=== PATIENT | male | born 1950 | race Caucasian/White ===

== ENCOUNTER → 2017-01-01 | Outpatient (CLI) | payer MEDICARE, OTHER ==
[2016-02-04 11:49] VITALS: BP 121/76
[~2017-01-01] MED LIST: ASPI81TA9 PO; ATEN50TA PO; ATOR40TA59 PO; BACL10TA PO; BUPIVACAINE 0.5% 50 ML VIAL. IJ ONE; GABA-587 PO; IOHEXOL 300 MG/ML 10ML VIAL. INT ART ONE; LEVO25TA4 PO; LIDOCAINE 1% Multi-Dose 20 ML VIAL. ID ONE; NAPR500T3 PO; TICA90TA PO; TRAM50TA PO; atenolol; hydromorphone; meloxicam; methylPREDNISolone ACETATE 80 MG/ML VIAL. IM ONE; tramadol
--- NOTE | 2017-01-01 13:55 | KCIC ---
PROCEDURE Therapeutic left hip injection using fluoroscopic guidance. HISTORY Hip pain. TECHNIQUE The procedure was explained to the patient as were potential risks, including infection, bleeding or allergic reaction. All questions were answered. Informed written and verbal consent was obtained. The hip was prepped and draped in the usual sterile manner. Following administration of local anesthetic, a 22-gauge spinal needle was advanced into the hip joint without difficulty, with care taken to avoid the vascular structures. Stylet was removed and following negative aspiration, a mixture of 4 cc Omnipaque-300, 2 cc (80 mg) Depo-Medrol, 4 cc 0.5% Marcaine and 4 cc 1% lidocaine were injected without difficulty. Fluoroscopy demonstrates uniform and satisfactory distribution of the injection through the hip. The needle was removed. There was good hemostasis at the injection site. The patient left in stable condition without immediate complication. The patient was given postprocedural instructions, instructed to contact us or the emergency room if there are any complications. A single spot image was obtained. FLUOROSCOPY TIME: 46 seconds Electronically signed by: Joaquin Carolina MD (Jan 01, 2017 13:54:39)
== END | disposition home or self-care (01) ==
LOC: KCIC 12:27
PROVIDERS: ATTEND Orthopaedic Surgery Sports Medicine
DX: M25.552 Pain in left hip (principal); G89.29 Other chronic pain
CPT/HCPCS: 20610; 77002; J1040; J3490; Q9967

== ENCOUNTER 2017-01-15 08:39 | Observation (INO) | payer MEDICARE, OTHER ==
[~2017-01-15] VITALS: Ht 182.9 cm; Wt 83.9 kg
[2017-01-15] VITALS (11 sets, daily range): BP systolic 99–167; BP diastolic 44–89
[~2017-01-15 08:39] MED LIST changes: -ASPI81TA9 PO; -ATEN50TA PO; -ATOR40TA59 PO; -BACL10TA PO; -BUPIVACAINE 0.5% 50 ML VIAL. IJ ONE; -GABA-587 PO; +HEPARIN for ARTERIAL LINE 1,500 ML ONE; +IODIXANOL 320 MG/ML 100 ML VIAL. ONE; -IOHEXOL 300 MG/ML 10ML VIAL. INT ART ONE; -LEVO25TA4 PO; -LIDOCAINE 1% Multi-Dose 20 ML VIAL. ID ONE; +LIDOCAINE 2% 20 ML VIAL. ONE; -NAPR500T3 PO; -TICA90TA PO; -TRAM50TA PO; -methylPREDNISolone ACETATE 80 MG/ML VIAL. IM ONE
[2017-01-15] MEDS: IV NORMAL SALINE 1000ML BAG 1,000 ML IV SCH (08:47)
[2017-01-15] MEDS ORDERED: NAPR500T3 PO (08:58)
[2017-01-15] MEDS ORDERED: ATEN50TA PO (08:58)
[2017-01-15] MEDS ORDERED: LEVO25TA4 PO (08:58)
[2017-01-15] MEDS ORDERED: BACL10TA PO (08:58)
[2017-01-15] MEDS ORDERED: TRAM50TA PO (08:58)
[2017-01-15] MEDS ORDERED: GABA-587 PO (08:58)
[2017-01-15 09:30] LABS: CREATININE 1.2 mg/dL (0.7-1.3); GFR 60.6; HEMATOCRIT 47.6 % (39.0-53.0); HEMOGLOBIN 16.4 g/dL (13.0-17.5); POTASSIUM 4.7 mmol/L (3.5-5.1); RED BLOOD COUNT 4.76 x10^6/uL (4.30-5.70); RED CELL DISTRIBUTION WIDTH 14.7 % (11.5-14.5)
[2017-01-15 09:35] LABS: INR 1.1 (0.8-1.1); PROTHROMBIN TIME PATIENT 13.5 SEC (11.7-14.0)
[2017-01-15] MEDS ORDERED: MIDAZOLAM HCL/PF 5 MG/5 ML VIAL ONE (10:54)
[2017-01-15] MEDS ORDERED: FENTANYL PF 250 MCG/5 ML VIAL. ONE (10:54)
[2017-01-15] MEDS ORDERED: FENTANYL PF 250 MCG/5 ML VIAL. IV ONE (11:15)
[2017-01-15] MEDS ORDERED: MIDAZOLAM HCL/PF 5 MG/5 ML VIAL IV ONE (11:15)
[2017-01-15] MEDS ORDERED: LIDOCAINE 2% 20 ML VIAL. IJ ONE (11:15)
[2017-01-15] MEDS ORDERED: IODIXANOL 320 MG/ML 100 ML VIAL. IART ONE (11:15)
[2017-01-15] MEDS ORDERED: HEPARIN for IV BOLUS 10,000 UNIT/10 ML VIAL. ONE (11:30)
[2017-01-15] MEDS ORDERED: TICAGRELOR 90 MG TABLET. PO ONE (12:15)
[2017-01-15] MEDS ORDERED: HEPARIN for IV BOLUS 10,000 UNIT/10 ML VIAL. IV ONE (12:30)
--- NOTE | 2017-01-15 13:38 | CARD ---
APPROVED REPORT Patient StatusOUT-PATIENT Cephalometric Technician: Yulissalizbeth Pedroza, RT 9.3 mins Fluoro 107 mL visipaque 428.84mGy [id number] HISTORY The patient is a 66 year-old male with a history of : hypertension, dyslipidemia. INDICATION FOR PROCEDURE The indication(s) include : Bilateral claudication. PROCEDURE NARRATIVE Patient is a pleasant 66-year-old gentleman who was seen in the office for lower extremity claudicati on bilaterally. He had hair loss and pain with ambulation and standing. After discussion of the ris ks and benefits a peripheral antigram was scheduled as an office YOVANY testing revealed bilateral disea se. After appropriate informed consent the patient was brought to the catheterization laboratory and the bilateral groins were prepped and draped in the usual sterile fashion. Under lidocaine 2% anest hesia a 5 Swedish sheath was placed in the right common femoral artery using a 18-gauge needle and J-t ipped guidewire via the modified Seldinger technique. Next, a Omni Flush 5 Swedish catheter was advan meche to the mid aorta and digital subtraction angiography with runoff was performed. Angiography reve aled critical left common femoral artery and ostial/proximal superficial femoral artery disease. Findings: Aorta: No significant disease. RCIA: Mild eccentric calcification without significant disease. RIIA: No signficant disease. REIA: No significant disease. RCFA: No significant disease. RSFA: No significant disease. RPOP: No significant disease. There is three vessel run-off below the knee with rapid tapering of the distal small vessels. RCIA: Mild eccentric calcification without significant disease. RIIA: No signficant disease. REIA: No significant disease. RCFA: No significant disease. RSFA: No significant disease. RPOP: No significant disease. There is three vessel run-off below the knee with rapid tapering of the distal small vessels. RCIA: Mild eccentric calcification without significant disease. RIIA: No signficant disease. REIA: No significant disease. RCFA: No significant disease. RSFA: No significant disease. RPOP: No significant disease. There is three vessel run-off below the knee with rapid tapering of the distal small vessels. LCIA: No significant disease. LIIA: No significant disease. NIMA: No significant disease. LCFA: 80% stenosis in the mid vessel. LSFA: Proxima/ostial 70% stenosis. LPOP: No significant disease, P2 segment not well visualized due to hardware. There is three vessel run-off below the knee with rapid tapering of the distal small vessels, there i s robust PT flow noted. Based upon the angiographic findings and presentation of claudication and intervention was performed on the left common femoral artery and superficial femoral arteries. The 5 Swedish sheath was then exc hanged for a 6 Swedish Gopal sheath. Next, a 0.035'' Versacor wire was used to traverse the lesions. N ext, a 5.0/20 balloon was used to angioplasty the SFA and RESTAURANT HOURLY TEAM MEMBER at 14 galilea for 2 minutes. Next, the SFA was angioplastied with a 6/40 Paclitaxel coated MELVIN and a 7/40 balloon was used in the RESTAURANT HOURLY TEAM MEMBER. Post-PVI there was residual less than 20% stenosis in the SFA and RESTAURANT HOURLY TEAM MEMBER with non-flow limiting dissection noted in the RESTAURANT HOURLY TEAM MEMBER. Therefore, given successful angioplasty result, further intervention was deferred. The pa tient received Heparin for anticoagulation with an ACT of 250 and was given Ticagrelor 180mg at case completion. The right groin sheath was removed and a Perclose device was used to achieve hemostasis. Conclusion Bilateral lower extremity claudication with small vessel disease distally. Successful PVI with angioplasty of the RESTAURANT HOURLY TEAM MEMBER and SFA. Recommendations Aggressive Medical Therapy ASA 81mg daily indefinitely Ticagrelor 90mg bid x 30 days.
[2017-01-15] MEDS ORDERED: hydrALAZINE 20 MG/ML VIAL. IVP ONE (14:00)
[2017-01-15] MEDS ORDERED: HYDRALAZINE 25 MG TABLET PO PRN (18:15)
[2017-01-15] MEDS ORDERED: ATENOLOL 50 MG TABLET PO SCH (18:30)
[2017-01-15] MEDS: ATORVASTATIN CALCIUM 40 MG TABLET. PO SCH ×2 (21:00→23:16)
[2017-01-15] MEDS ORDERED: TRAMADOL 50 MG TABLET. PO PRN (22:00)
[2017-01-15] MEDS: LEVOTHYROXINE 25 MCG TABLET. PO SCH (23:16)
[2017-01-15] MEDS: TICAGRELOR 90 MG TABLET. PO SCH (23:16)
[2017-01-15] MEDS: GABAPENTIN 400 MG CAPSULE. PO SCH (23:16)
[2017-01-15] MEDS: NAPROXEN 500 MG TABLET PO SCH (23:16)
[2017-01-15] MEDS: BACLOFEN 10 MG TABLET PO SCH (23:16)
[2017-01-16] MEDS: IV NORMAL SALINE 1000ML BAG 1,000 ML IV SCH (01:27)
[2017-01-16 03:00] VITALS: BP 133/77
[2017-01-16 05:23] LABS: CHOLESTEROL/HDL RATIO 3.3
[2017-01-16] MEDS: LEVOTHYROXINE 25 MCG TABLET. PO SCH (06:18)
[2017-01-16 07:00] VITALS: BP 140/79
[2017-01-16] MEDS ORDERED: ASPIRIN ENTERIC COATED 81 MG TABLET.DR. PO SCH (08:00)
[2017-01-16] MEDS ORDERED: ATENOLOL 50 MG TABLET PO SCH (09:00)
[2017-01-16] MEDS: TICAGRELOR 90 MG TABLET. PO SCH (09:44)
[2017-01-16] MEDS: BACLOFEN 10 MG TABLET PO SCH (09:45)
[2017-01-16 09:46] VITALS: BP 140/79
[2017-01-16] MEDS: GABAPENTIN 400 MG CAPSULE. PO SCH (09:46)
[2017-01-16] MEDS: NAPROXEN 500 MG TABLET PO SCH (09:46)
[2017-01-16] MEDS ORDERED: ATOR40TA59 PO (10:09)
[2017-01-16] MEDS ORDERED: TICA90TA PO (10:09)
[2017-01-16] MEDS ORDERED: ASPI81TA9 PO (10:09)
--- NOTE | 2017-01-16 10:17 | PDOC3 ---
Discharge Summary Visit Information Date of Admission: Jan 15, 2017 Date of Discharge: Jan 16, 2017 Admitting Diagnosis Comment: 1. PAD with claudication 2. Hypertension 3. COPD 4. tobacco abuse 5. chronic pain 6. hypothyroidism Final Diagnosis Problems Medical Problems: (1) PAD (peripheral artery disease) Status: Acute 2. Hypertension 3. COPD 4. tobacco abuse 5. chronic pain 6. hypothyroidism Brief Hospital Course Allergies Allergies Coded Allergies Type Severity Reaction Last Updated Verified Penicillins Allergy Severe Swelling 02/04/16 Yes Vital Signs Vital Signs Date Time Temp Pulse Resp B/P Pulse Ox O2 Delivery O2 Flow Rate FiO2 01/16/17 10:06 18 Room Air 01/16/17 09:46 53 140/79 01/16/17 07:00 97.5 97 97.5 Lab Results Laboratory Tests Test 01/15/17 09:10 01/15/17 10:41 01/16/17 04:00 White Blood Count 8.0x10^3/uL (4.0-11.0) Red Blood Count 4.76x10^6/uL (4.30-5.70) Hemoglobin 16.4g/dL (13.0-17.5) Hematocrit 47.6% (39.0-53.0) Mean Corpuscular Volume 100fL (79-100) Mean Corpuscular Hemoglobin 35pg (25-35) Mean Corpuscular Hemoglobin Concent 35g/dL (31-37) Red Cell Distribution Width 14.7% (11.5-14.5) Platelet Count 163x10^3/uL (140-400) Prothrombin Time 13.5SEC (11.7-14.0) Prothromb Time International Ratio 1.1 (0.8-1.1) Activated Partial Thromboplast Time 29SEC (24-38) Sodium Level 143mmol/L (136-145) Potassium Level 4.7mmol/L (3.5-5.1) Chloride Level 106mmol/L (98-107) Carbon Dioxide Level 25mmol/L (21-32) Anion Gap 12 (6-14) Blood Urea Nitrogen 20mg/dL (8-26) Creatinine 1.2mg/dL (0.7-1.3) Estimated GFR (Cockcroft-Gault) 60.6 Glucose Level 124mg/dL (70-99) Calcium Level 9.0mg/dL (8.5-10.1) Activated Clotting Time 242sec (92-181) Triglycerides Level 106mg/dL (0-150) Cholesterol Level 145mg/dL (0-200) LDL Cholesterol, Calculated 80mg/dL (0-100) VLDL Cholesterol, Calculated 21mg/dL (0-40) HDL Cholesterol 44mg/dL (40-60) Cholesterol/HDL Ratio 3.3 Laboratory Tests Test 01/15/17 10:41 01/16/17 04:00 Activated Clotting Time 242sec (92-181) Triglycerides Level 106mg/dL (0-150) Cholesterol Level 145mg/dL (0-200) LDL Cholesterol, Calculated 80mg/dL (0-100) VLDL Cholesterol, Calculated 21mg/dL (0-40) HDL Cholesterol 44mg/dL (40-60) Cholesterol/HDL Ratio 3.3 Brief Hospital Course Mr. Jorge is a 66 old male with LE claudication, hair loss and a non-healing hallux wound. Quantaflo studies were abnormal. Further evaluation by angiography was advised and patient was agreeable to proceed. Underwent femoral angiography on 01/15/2017. For full details see report. Underwent left PVI with angioplasty of the LOSS PREVENTION CONSULTANT and SFA. Peripheral circulation monitored overnight. 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 Discharge on DAPT with ASA and Brilinta X 30 days; then ASA and clopidogrel for the following 2 months. LDLs = 80; started on statin therapy. Discharge Information Condition at Discharge: Stable Follow Up: Weeks (4 weeks with cardiology; one week with PCP) Disposition/Orders: D/C to Home Scheduled Aspirin (Aspirin Ec) 81 MG PO DAILYWBKFT Atenolol (Atenolol) 50 MG PO DAILY (Reported) Atorvastatin Calcium (Atorvastatin Calcium) 40 MG PO QHS Baclofen (Baclofen) 10 MG PO BID (Reported) Gabapentin (Gabapentin) 400 MG PO TID (Reported) Levothyroxine Sodium (Levothyroxine Sodium) 25 MCG PO DAILYAC (Reported) Ticagrelor (Brilinta) 90 MG PO BID Scheduled PRN Tramadol Hcl (Tramadol Hcl) 50 MG PO Q6H PRN PRN PAIN (Reported) Discontinued Medications Naproxen (Naproxen) 500 MG PO (Reported) SHELDON GONZALEZ APRN Jan 16, 2017 10:17
== END 2017-01-16 12:02 | disposition home or self-care (01) ==
LOC: CCL 08:39 → 2 NORTH 11:26
PROVIDERS: ADMIT Internal Medicine Cardiovascular Disease; ATTEND Internal Medicine Cardiovascular Disease
DX: I73.9 Peripheral vascular disease, unspecified (principal); I10 Essential (primary) hypertension; J44.9 Chronic obstructive pulmonary disease, unspecified; G89.29 Other chronic pain; E03.9 Hypothyroidism, unspecified; Z72.0 Tobacco use
CPT/HCPCS: 36415; 37224; 75630; 80048; 80061; 85027; 85347; 85610; 85730; 96374; 96375; C1769; C1771; C1885; C1892; C2623; G0269; G0378; G0379; J1644; J2250; J3010; Q9967; 37220

== ENCOUNTER → 2018-02-22 | Outpatient (CLI) | payer MEDICARE, OTHER | END | disposition home or self-care (01) | LOC: KCIC MRI 10:31 | DX: M51.36 Other intervertebral disc degeneration, lumbar region (principal); M47.816 Spondylosis without myelopathy or radiculopathy, lumbar region; M25.78 Osteophyte, vertebrae | CPT/HCPCS: 72148 ==

== ENCOUNTER → 2018-03-11 | Outpatient (CLI) | payer OTHER, MEDICARE ==
[~2018-03-11] MED LIST changes: -HEPARIN for ARTERIAL LINE 1,500 ML ONE; -IODIXANOL 320 MG/ML 100 ML VIAL. ONE; +IOHEXOL 180 MG/ML 10 ML VIAL.; -LIDOCAINE 2% 20 ML VIAL. ONE; -atenolol; -hydromorphone; -meloxicam; +methylPREDNISolone ACETATE 40 MG/ML VIAL.; +methylPREDNISolone ACETATE 80 MG/ML VIAL.; -tramadol
== END ==
LOC: PNCL 13:16
DX: M51.16 Intervertebral disc disorders with radiculopathy, lumbar region (principal); J44.9 Chronic obstructive pulmonary disease, unspecified; M19.90 Unspecified osteoarthritis, unspecified site; E03.9 Hypothyroidism, unspecified; I73.9 Peripheral vascular disease, unspecified; F17.210 Nicotine dependence, cigarettes, uncomplicated; Z79.82 Long term (current) use of aspirin; Z72.89 Other problems related to lifestyle; Z88.0 Allergy status to penicillin; Z98.890 Other specified postprocedural states; Z96.652 Presence of left artificial knee joint
CPT/HCPCS: 62323; J1030; J1040; Q9965

== ENCOUNTER → 2018-04-04 | Outpatient (CLI) | payer OTHER ==
[~2018-04-04] MED LIST changes: +LIDOCAINE 1% PF 2 ML VIAL.
== END ==
LOC: PNCL 13:25
DX: M51.16 Intervertebral disc disorders with radiculopathy, lumbar region (principal); I10 Essential (primary) hypertension; J44.9 Chronic obstructive pulmonary disease, unspecified; E03.9 Hypothyroidism, unspecified; F17.210 Nicotine dependence, cigarettes, uncomplicated; Z87.39 Personal history of other diseases of the musculoskeletal system and connective tissue; Z98.890 Other specified postprocedural states
CPT/HCPCS: 62323; J1030; J1040; Q9965

== ENCOUNTER → 2018-04-18 | Outpatient (CLI) | payer OTHER ==
[~2018-04-18] MED LIST changes: +BUPIVACAINE MPF 0.25% 30 ML VIAL.; -methylPREDNISolone ACETATE 40 MG/ML VIAL.
== END | disposition home or self-care (01) ==
LOC: PNCL 11:27
DX: M51.16 Intervertebral disc disorders with radiculopathy, lumbar region (principal); I10 Essential (primary) hypertension; J44.9 Chronic obstructive pulmonary disease, unspecified; M19.90 Unspecified osteoarthritis, unspecified site; Z96.652 Presence of left artificial knee joint; E03.9 Hypothyroidism, unspecified; Z88.0 Allergy status to penicillin; F17.200 Nicotine dependence, unspecified, uncomplicated; Z82.49 Family history of ischemic heart disease and other diseases of the circulatory system; Z83.1 Family history of other infectious and parasitic diseases
CPT/HCPCS: 64483; 64493; J1040; J3490; Q9965

== ENCOUNTER 2018-07-04 09:00 | Outpatient (CLI) | payer OTHER ==
[~2018-07-04] VITALS: Ht 185.4 cm; Wt 84.4 kg
[2018-07-04] VITALS (19 sets, daily range): BP systolic 112–188; BP diastolic 66–107
[~2018-07-04 09:00] MED LIST changes: +ACET325T9 PO; +ASPI-612 PO; +ATEN50TA PO; +ATOR40TA59 PO; +BACL10TA PO; -BUPIVACAINE MPF 0.25% 30 ML VIAL.; +GABA-587 PO; -IOHEXOL 180 MG/ML 10 ML VIAL.; +LEVO25TA4 PO; -LIDOCAINE 1% PF 2 ML VIAL.; +METO50TA29 PO; +MOME45OI2 TP; +NAPR-514 PO; +NAPR-683 PO; +TICA90TA PO; +TRAM50TA PO; +TRIA15OI TP; +atenolol; +hydromorphone; +meloxicam; -methylPREDNISolone ACETATE 80 MG/ML VIAL.; +tramadol
[2018-07-04] MEDS ORDERED: IODIXANOL 320 MG/ML 100 ML VIAL. ONE (09:31)
[2018-07-04] MEDS ORDERED: LIDOCAINE 1% PF 30 ML VIAL. ONE (09:31)
[2018-07-04] MEDS ORDERED: GABA-587 PO (09:38)
[2018-07-04] MEDS ORDERED: TRAM50TA PO (09:38)
[2018-07-04] MEDS ORDERED: METO-269 PO (09:38)
[2018-07-04] MEDS ORDERED: BACL10TA PO (09:38)
[2018-07-04 09:41] LABS: HEMATOCRIT 43.5 % (39.0-53.0); HEMOGLOBIN 15.3 g/dL (13.0-17.5); RED BLOOD COUNT 4.15 x10^6/uL (4.30-5.70); RED CELL DISTRIBUTION WIDTH 14.4 % (11.5-14.5); WHITE BLOOD COUNT 6.5 x10^3/uL (4.0-11.0)
[2018-07-04] MEDS ORDERED: HEPARIN for IV BOLUS 10,000 UNIT/10 ML VIAL. ONE (09:46)
[2018-07-04] MEDS ORDERED: fentaNYL PF VIAL 100 MCG/2 ML VIAL ONE (09:46)
[2018-07-04] MEDS ORDERED: MIDAZOLAM HCL/PF 2 MG/2 ML VIAL. ONE ×2 (09:46→10:36)
[2018-07-04 09:52] LABS: GFR 74.5; PROTHROMBIN TIME PATIENT 13.7 SEC (11.7-14.0)
[2018-07-04] MEDS: fentaNYL PF VIAL 100 MCG/2 ML VIAL IV ONE (10:30)
[2018-07-04] MEDS: LIDOCAINE 1% PF 30 ML VIAL. INJ ONE (10:30)
[2018-07-04] MEDS: IODIXANOL 320 MG/ML 100 ML VIAL. IART ONE (10:30)
[2018-07-04] MEDS: MIDAZOLAM HCL/PF 2 MG/2 ML VIAL. IV ONE (10:30)
[2018-07-04] MEDS: HEPARIN for IV BOLUS 10,000 UNIT/10 ML VIAL. IV ONE (11:00)
[2018-07-04] MEDS: NITROGLYCERIN 200 MCG/2 ML SYRINGE FOR CATH/VASC LAB. IART ONE ×2 (11:19→11:25)
[2018-07-04] MEDS ORDERED: CLOPIDOGREL BISULFATE 75 MG TABLET ONE ×2 (11:42→11:49)
[2018-07-04] MEDS: ASPIRIN CHEWABLE 81 MG TABLET. PO ONE (11:44)
[2018-07-04] MEDS: CLOPIDOGREL BISULFATE 75 MG TABLET PO ONE (11:45)
--- NOTE | 2018-07-04 12:31 | CARD ---
MR#: [id number] Date of Study: 07/04/2018 Ordering Physician: SALVADOR MONTILLA, Referring Physician: SALVADOR MONTILLA, Tech: RT Rocio (R) APPROVED REPORT Technologist: Renata Grimm RT (R) Nurse: Kassie Maclolm RN Procedure(s) performed: 60 MINS SEDATION Abdominal aortogram with iliofemoral run-off R SFA angioplasty and drug coated balloon. HISTORY : The patient is a 67 year-old male with a history of . INDICATION The indication(s) include : claudication and non-healing right toe wound. 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 . PROCEDURE NARRATIVE CLINICAL HISTORY: Pleasant 67 y.o man referred from podiatry for non-healing RLE toe wound. Reports claudication. INFORMED CONSENT: The risks, benefits and alternatives of the procedure were discussed in detail with the patient and written informed consent was obtained. ACCESS: After appropriate informed consent, the patient was brought to the refuse laborer and placed in the supine position. Preprocedural timeout was completed and confirmed the right patient and procedure. The bila teral groins were prepped and draped in usual sterile fashion. Moderate sedation acheived with Fentan yl and Versed. Under lidocaine local anesthesia, a 5Fr introducer sheath was placed in the LCFA via the modified caridad derrick technique with a J-tipped guidewire and an 18g needle. Diagnostic angiography was then perform ed using a 5Fr Omniflush catheter with digital subtraction angiography. Next, the contralateral (RCFA ) was accessed with the aid of the Omniflush catheter and a J-tipped guidewire. The omniflush was the n exchanged for a 65 cm 4Fr angled glide catheter which was then placed in the RCFA. Repeat right low er extremity with DSA was performed. FINDINGS: AO: 154/86 AORTA: Mild tapering of the distal aorta without aneurysm. Probable 30% stenosis. RCIA: Mild diffuse irregularities of up to 20%. REIA: No significant disease. RIIA: No significant disease. RCFA: No significant disease. RSFA: Distal eccentric 90% stenosis. RPROF: No significant disease. RPOP: No significant disease. RAT: No significant disease. RTP trunk: No significant disease. LCIA: Mild diffuse irregularities of upto 20%. NIMA: There is an ostial/proximal 50% eccentric stenosis. *No significant pullback gradient across th e lesion, approximately 12 mm Hg. LIIA: Has an ostial/proximal 50% stenosis. LCFA: No significant disease. LSFA: No significant disease. LPROF: Ostial 80% stenosis. LPOP: No significant disease. Below knee vessels not well visualized. INTERVENTIONAL TECHNIQUE: Based on the symptoms of claudication, non-healing toe wound and significant RSFA stenosis, an interv ention was planned. The patient was given 5500 units of heparin. The 5Fr sheath was exchanged for a 6 Fr Gopal 45 cm sheath. A command 0.018'' wire was used to cross the R SFA lesion. Next, serial balloo n angioplasty was performed witha 4.0/20, 5.0/20 [place] balloons followed by 6.0/40 mm drug coated ba lloon. Intraarterial NTG was administered. Final angiography revealed less than 20% residual stenosis in 2 views. At case completion, the left sided sheath was removed via manual compression when the act was less th an 180. The patient tolerated the procedure well and there were no acute complications. Conclusion 1. [place]in category 4 claudication. 2. Successful RSFA PVI with angioplasty and drug coated balloon. Recommendations ASA 81mg daily indefinitely Plavix 75mg daily for 4 weeks. F/u in 6 weeks with repeat YOVANY. Signed by : Salvador Montilla, Electronically Approved : 07/04/2018 12:30:46
== END 2018-07-04 17:05 | disposition home or self-care (01) ==
LOC: CCL 09:00
PROVIDERS: ATTEND Internal Medicine Cardiovascular Disease
DX: I70.213 Atherosclerosis of native arteries of extremities with intermittent claudication, bilateral legs (principal); Z79.01 Long term (current) use of anticoagulants; Z88.0 Allergy status to penicillin
CPT/HCPCS: 36415; 37224; 75630; 80048; 85027; 85347; 85610; 85730; 99152; 99153; C1769; C1885; C1892; C2623; J1644; J2250; J3010; J3490; Q9967

== ENCOUNTER → 2018-08-26 | Outpatient (CLI) | payer OTHER ==
[2018-07-04 16:54] VITALS: BP 142/94
[~2018-08-26] MED LIST changes: +BUPIVACAINE MPF 0.25% 10 ML VIAL. ONE; +IOHEXOL 180 MG/ML 10 ML VIAL. ONE; +LIDOCAINE 1% PF 2 ML VIAL. ONE; +METO-269 PO; +methylPREDNISolone ACETATE 80 MG/ML VIAL. ONE
--- NOTE | 2018-08-26 21:23 | PAIN ---
DATE OF SERVICE: 08/26/2018 PROGRESS NOTE FOR PAIN CLINIC DIAGNOSES: 1. Lumbar radiculopathy with lumbar degenerative disk disease. 2. Left hip joint pain with primary osteoarthritis, left hip joint. HISTORY OF PRESENT ILLNESS: The patient is a 68-year-old male who returns for followup status post previous lumbar epidural steroid injection and translaminar injection at the L4-L5 level on the left. The patient did very well with this, was last seen on 04/18/2018, about 75% improvement for the first month or so. The patient reports the pain is different now and has been sent by his orthopedic surgeon as he has had significant osteoarthritis in the left hip with some increased pain in the hip itself, still has some pain in the low back and left leg in a radicular fashion; however, the hip joint is becoming much more noticeable. The patient reports it is worse with standing with sitting or lying down. It almost completely relieved in the hip joint itself, worse with walking on one foot, stepping on a stair, putting all his weight on his left leg and at the point, he cannot do this anymore. He avoids stairs or steps whenever possible. The patient reports the pain is aching, sharp, dull, tight, shooting, on and off in intensity, again with activity. The patient reports it is 9 on a scale of 10 at its worst, 7 on average, 1 at its least when he is lying down or sleeping, is a 7 today with weightbearing. The patient reports no new motor or sensory deficits and no new bowel or bladder incontinence or other complaints. PHYSICAL EXAMINATION: VITAL SIGNS: The patient's blood pressure is 141/86, pulse 101, respirations 16, temperature 98.0 degrees Fahrenheit and weight is 185 pounds. GENERAL: The patient is awake, alert, oriented, appropriate and very pleasant demeanor. HEENT: Head shows normocephalic and atraumatic. The patient has an erosive defect in the left naris. Extraocular movements are intact and symmetrical. Oral cavity: Mucous membranes moist and pink. Dentition is intact. NECK: Shows anterior throat supple without palpable lymphadenopathy noted. Swallow reflex symmetrical. CHEST: Shows normal on inspection. Breath sounds clear to auscultation bilaterally. HEART: Shows S1 and S2 clear. No murmurs auscultated. ABDOMEN: Soft, nontender and nondistended. No palpable organomegaly is noted. No rebound or guarding demonstrated. BACK: Shows spine grossly in the midline. Normal appearing thoracic kyphosis, some minor flattening of lumbar lordotic curvature. Lumbar paraspinous muscle shows symmetrical on inspection, with palpation shows some moderate tenderness bilaterally but only diffusely without significant radiation. The patient has full rotational motion of the lumbar spine without difficulty including lateral right and left extension and flexion as well. EXTREMITIES: The patient's lower extremities show deep tendon reflexes 1+ in the patellar and tendo-calcaneus tendons. Motor exam is approximately 4 on a scale of 5 with left dorsiflexion and extension, 5/5 on the right. The left hip shows significant tenderness with external rotation and abduction with a positive Valentino sign on the left side. The patient has a well-healed surgical scar in the left lateral aspect of the hip as well from previous fracture and ORIF. Peripheral pulses are 1+ posterior tibia. No peripheral edema is noted bilaterally. Options were discussed with the patient. The patient's old chart was reviewed as well as his current medication regimen updated. Current review of systems updated today as well. We will proceed with a left intraarticular hip joint injection using C-arm fluoroscopic guidance. Risks were again discussed including, but not limited to bleeding, infection, possibility of intravascular injection sequelae, spread of local anesthetic and numbness, side effects of steroid medication and poor results regarding pain control. The patient understands and wished to proceed. The patient will return to the clinic in approximately 2 weeks for followup, was counseled as to return appointment, activity level and side effects to be aware of. DIAGNOSIS: Primary osteoarthritis, left hip joint with left hip joint pain. PROCEDURE: Left hip intra-articular injection using C-arm fluoroscopic guidance under sterile prep and drape using local anesthetic. MEDICATION INJECTED: A total of 3 mL of 0.25% bupivacaine and 80 mg Depo-Medrol as well as 2 mL of Isovue for contrast. CONDITION AT DISCHARGE: Stable. The patient tolerated procedure well and had no complications. YESSI CARTER MD DR: CARMENCITA/savana JOB#: [id number] / [id number]
== END | disposition home or self-care (01) ==
LOC: PNCL 13:33
PROVIDERS: ATTEND Anesthesiology
DX: M16.12 Unilateral primary osteoarthritis, left hip (principal); M51.16 Intervertebral disc disorders with radiculopathy, lumbar region; Z88.0 Allergy status to penicillin
CPT/HCPCS: 20610; 77002; J1040; J3490; Q9965

== ENCOUNTER → 2018-09-18 | Outpatient (CLI) | payer OTHER ==
[2018-07-04 16:54] VITALS: BP 142/94
[~2018-09-18] MED LIST changes: -LIDOCAINE 1% PF 2 ML VIAL. ONE
--- NOTE | 2018-09-18 20:43 | PAIN ---
DATE OF SERVICE: 09/18/2018 PROGRESS REPORT FOR PAIN CLINIC DIAGNOSES: 1. Lumbar radiculopathy with lumbar degenerative disk disease. 2. Left hip joint pain with primary left hip joint osteoarthritis. HISTORY OF PRESENT ILLNESS: The patient is a 68-year-old male who returns for followup status post left hip joint intra-articular injection. The patient reports he did very well with this with about 75% improvement in the left hip itself. His main complaint is back pain radiating to the left posterior lateral thigh, lateral anterior thigh, anterior medial thigh into the medial lower leg and some into the posterior lower leg as well on the left side. The patient reports it is aching, sharp, shooting, stabbing, on and off in intensity, worse with walking, standing, change in positions while his hip is doing much better. His back and leg is becoming more noticeable with radicular pain. The patient reports the pain is 7 on a scale of 10 at its worst, average and 1 at its least and is a 7 today. The patient reports no new motor or sensory deficits and no new bowel or bladder incontinence or other complaints. The patient reports it awakens him from sleep very infrequently and most nights he sleeps fairly well. PHYSICAL EXAMINATION: VITAL SIGNS: Today, the patient's blood pressure 145/92, pulse 93, respirations 18 and temperature 97.7 degrees Fahrenheit. Height is 6 feet 1 inch. GENERAL: The patient is awake, alert, oriented, appropriate and very pleasant demeanor. HEENT: Head shows normocephalic and atraumatic. The patient with a surgical defect in the left naris. Extraocular movements are intact and symmetrical. Oral cavity: Mucous membranes moist and pink. Dentition is intact. NECK: Shows anterior throat supple without palpable lymphadenopathy noted. Swallow reflex symmetrical. CHEST: Shows normal breath normal on inspection. Breath sounds are clear to auscultation bilaterally. HEART: Shows S1 and S2 clear. No murmurs auscultated. ABDOMEN: Soft, nontender and nondistended. No palpable organomegaly is noted. No rebound or guarding demonstrated. BACK: Shows spine grossly in the midline. Normal appearing thoracic kyphosis and lumbar lordotic curvature. Lumbar paraspinous muscle shows symmetrical on inspection, on palpation shows some moderate tenderness only diffusely bilaterally but without radiation, without trigger points or asymmetry. The patient has good rotational motion both laterally as well as extension and flexion without difficulty. EXTREMITIES: Lower extremities show deep tendon reflexes at 1+ in the patellar and tendo-calcaneus tendons. Motor exam is approximately 4 on a scale of 5 left dorsiflexion and extension, 5/5 on the right. Peripheral pulses are 1+ posterior tibia. No peripheral edema is noted. Options were discussed with the patient. The patient's old chart was reviewed as well as his current medication regimen updated. Current review of systems updated today as well. We will proceed with a first in this series a left L4-L5 transforaminal injection with fluoroscopic guidance. Risks were again discussed including, but not limited to bleeding, infection, possibility of epidural hematoma, subsequent neurologic compromise, dural puncture, headaches, spinal cord and/or nerve damage, side effects of steroid medication, potential injection of the vertebral artery at that level permanent ischemic damage as well as poor results regarding pain control. The patient understands and wished to proceed. The patient will return to the clinic in approximately 2 weeks for followup, was counseled as to return appointment, activity level and side effects to be aware of. DIAGNOSIS: Lumbar radiculopathy with lumbar degenerative disk disease. PROCEDURES: L4-L5 left transforaminal injection using C-arm fluoroscopic guidance under sterile prep and drape using local anesthetic. MEDICATION INJECTED: A total of 2 mL of 0.25% bupivacaine and 80 mg Depo-Medrol and 1.5 mL of Isovue for contrast. CONDITION AT DISCHARGE: Stable. The patient tolerated the procedure well and had no complications. YESSI CARTER MD DR: CARMENCITA/savana JOB#: [id number] / [id number]
== END | disposition home or self-care (01) ==
LOC: PNCL 13:25
PROVIDERS: ATTEND Anesthesiology
DX: M51.16 Intervertebral disc disorders with radiculopathy, lumbar region (principal); M16.12 Unilateral primary osteoarthritis, left hip; Z88.0 Allergy status to penicillin
CPT/HCPCS: 64483; J1040; J3490; Q9965

== ENCOUNTER → 2018-10-15 | Outpatient (CLI) | payer OTHER ==
[2018-07-04 16:54] VITALS: BP 142/94
[~2018-10-15] MED LIST changes: -GABA-587 PO; +GABA-689 PO
--- NOTE | 2018-10-15 19:16 | PAIN ---
DATE OF SERVICE: 10/15/2018 PROGRESS NOTE FOR PAIN CLINIC DIAGNOSIS: Lumbar radiculopathy with lumbar degenerative disk disease. HISTORY OF PRESENT ILLNESS: The patient is a 68-year-old male who returns for followup status post lumbar transforaminal injection at L4-L5 on the left x 1. The patient reports he did quite well with about overall 50% improvement initially, but the pain is returning now in the low back and left lower extremity. The patient reports it is a 7 on a scale of 10 at its worst, 5 on average, 1 at its least and is a 5 today. The patient reports it is aching, sharp, cramping, stabbing, shooting, radiating into the left leg, mostly in the posterior lateral and anterior aspect of the thigh, anterior medial lower leg, some on the calf as well. The patient reports no new motor or sensory deficits, no new bowel or bladder incontinence. The pain is returning, however, and now is only minimal improvement at this time and is near baseline. The patient reports no new motor or sensory deficits. No bowel or bladder incontinence or other complaints. PHYSICAL EXAMINATION: VITAL SIGNS: The patient's blood pressure is 121/72, pulse 88, respirations 18, temperature 98.1 degrees Fahrenheit. Height is 6 feet 1 inch and weight is 187 pounds. GENERAL: The patient is awake, alert, oriented, appropriate, very pleasant demeanor. HEENT: Head is normocephalic, atraumatic. Extraocular muscles are intact and symmetrical. Oral cavity: Mucous membranes moist and pink. Dentition is intact. NECK: Shows anterior throat supple without palpable lymphadenopathy noted. Swallow reflex is symmetrical. CHEST: Shows normal on inspection. Breath sounds clear to auscultation bilaterally. HEART: Shows S1, S2 clear. No murmurs auscultated. ABDOMEN: Soft, nontender, nondistended. No palpable organomegaly is noted. No rebound or guarding demonstrated. BACK: Shows spine grossly in the midline. Normal appearing thoracic kyphosis and some minor flattening of lumbar lordotic curvature. Lumbar paraspinous muscle shows symmetrical on inspection. On palpation shows some moderate tenderness diffusely in the inferior aspect of the paraspinous muscles only without significant radiation. The patient shows good rotational motion of lumbar spine both laterally as well as extension and flexion without significant difficulty. EXTREMITIES: The patient's lower extremities show deep tendon reflexes at 1+ in the patellar and tendo calcaneus tendons are equal. Motor exam is approximately 4 on scale of 5 with left dorsiflexion, extension, 5/5 on the right. Peripheral pulses are 1+ posterior tibia. No peripheral edema is noted bilaterally. Options were discussed with the patient. The patient's old chart was reviewed as his current medication regimen updated. Current review of systems updated today as well. We will proceed with a second in this series of left L4-L5 transforaminal injection with fluoroscopic guidance. Risks were again discussed including, but not limited to, bleeding, infection, possibility of epidural hematoma, subsequent neurological compromise, dural puncture headaches, spinal cord and/or nerve damage, side effects of steroid medication, potential injection of the vertebral artery at that level and permanent ischemic damage as well as poor results regarding pain control. The patient understands and wished to proceed. The patient to return to clinic in approximately 2 weeks for followup, was counseled on return appointment, activity level and side effects to be aware of. DIAGNOSIS: Lumbar radiculopathy with lumbar degenerative disk disease. PROCEDURE: Left L4-L5 transforaminal epidural steroid injection using C-arm fluoroscopic guidance under sterile prep and drape using local anesthetic. MEDICATION INJECTED: A total of 80 mg Depo-Medrol plus 2 mL of 0.25% bupivacaine and 1.5 mL of Isovue for contrast. CONDITION AT DISCHARGE: Stable. The patient tolerated procedure well, had no complications. YESSI CARTER MD DR: CARMENCITA/savana JOB#: [id number] / [id number]
== END | disposition home or self-care (01) ==
LOC: PNCL 12:57
PROVIDERS: ATTEND Anesthesiology
DX: M51.16 Intervertebral disc disorders with radiculopathy, lumbar region (principal); M79.605 Pain in left leg; M79.604 Pain in right leg; Z98.890 Other specified postprocedural states; Z88.0 Allergy status to penicillin
CPT/HCPCS: 64483; J1040; J3490; Q9965

== ENCOUNTER → 2018-10-31 | Outpatient (CLI) | payer OTHER ==
[2018-07-04 16:54] VITALS: BP 142/94
[~2018-10-31] MED LIST changes: -BUPIVACAINE MPF 0.25% 10 ML VIAL. ONE; -IOHEXOL 180 MG/ML 10 ML VIAL. ONE; -methylPREDNISolone ACETATE 80 MG/ML VIAL. ONE
--- NOTE | 2018-11-07 08:54 | RAD ---
MR#: [id number] Date of Study: 10/31/2018 Ordering Physician: SALVADOR MONTILLA, Referring Physician: SALVADOR MONTILLA, Tech: Jennifer Fagan, RAMIRO, RVT, RTR APPROVED REPORT Patient Location: OUT-PATIENT Indications PAD Risk Factors History of Lower Extremity PAD: Bilaterally Family History: CAD Smoking VELOCITY AND DOPPLER WAVEFORM ANALYSIS RIGHT cm/secWaveformSeverity LEFT cm/secWaveform Severity pCFA 199.6pCFA 149.9 dCFA 180.0dCFA 73.7 Prof Fem Art. 146.5Prof Fem Art. 439.6 Fem Art Prox. 146.5Fem Art Prox. 202.8 Fem Art Mid. 112.0Fem Art Mid. 101.0 Fem Art Dist. 92.5Fem Art Dist. 68.8 Pop Art(AK) 61.3Pop Art(AK) 80.1 LEVERMAN Prox. 72.3PTA Prox. 95.5 LEVERMAN Dist. 67.1PTA Dist. 54.5 Per Art Prox. 53.8Per Art Prox. 75.3 ALCIRA Prox. 57.8ATA Prox. 70.5 Findings Grayscale images of the bilateral lower extremity arterial vessels reveals moderately elevated veloci ties in the bilateral common femoral artery suggestive of 50% stenosis. On the right spectral waveforms and color Doppler are grossly within normal limits without any signif icant flow-limiting stenosis. There appears to be three-vessel runoff with patency demonstrated of th e posterior tibial and anterior tibial vessels. Previous right SFA stenosis intervention appears to b e intact without any significant elevated velocities On the left there appears to be a critical stenosis involving the profunda femoris artery. No signifi cant flow-limiting stenosis is identified in the SFA and popliteal vessels. The below-knee vessels de monstrate monophasic waveforms but with adequate velocities and also were noted to have three-vessel runoff. Critical Notification Critical Value: No <Conclusion> 1. Moderate bilateral common femoral arterial disease 2. Previous right SFA intervention from June 2018 appears to be intact without any velocity acceler ation 3. Critical left profunda femoral artery disease. Signed by : Salvador Montilla, Electronically Approved : 11/07/2018 08:52:22
== END | disposition home or self-care (01) ==
LOC: US 16:07
PROVIDERS: ATTEND Internal Medicine Cardiovascular Disease
DX: I77.89 Other specified disorders of arteries and arterioles (principal); Z87.891 Personal history of nicotine dependence; Z82.49 Family history of ischemic heart disease and other diseases of the circulatory system
CPT/HCPCS: 93925

== ENCOUNTER → 2019-01-28 | Outpatient (CLI) | payer OTHER ==
[2018-07-04 16:54] VITALS: BP 142/94
[~2019-01-28] MED LIST changes: +REGADENOSON 0.4 MG/5 ML DISP.SYRIN. IV ONE
--- NOTE | 2019-01-28 13:09 | CARD ---
MR#: [id number] Date of Study: 01/28/2019 Ordering Physician: SALVADOR MONTILLA, Referring Physician: SALVADOR MONTILLA, Tech: Julisa Pat [facility] APPROVED REPORT EXAM: Two-dimensional and M-mode echocardiogram with Doppler and color Doppler. Other Information Quality : Technically LimitedHR: 76bpm Rhythm : NSRTechnically limited study due to smoking. INDICATION Dyspnea 2D DIMENSIONS RVDd3.0 (2.9-3.5cm)Left Atrium(2D)4.0 (1.6-4.0cm) IVSd1.3 (0.7-1.1cm)Aortic Root(2D)3.0 (2.0-3.7cm) LVDd3.6 (3.9-5.9cm)LVOT Diameter1.8 (1.8-2.4cm) PWd1.2 (0.7-1.1cm)LVDs2.6 (2.5-4.0cm) FS (%) 26.3 %SV27.7 ml LVEF(%)52.5 (>50%) M-Mode DIMENSIONS Left Atrium(MM)4.27 (2.5-4.0cm)Aortic Root3.37 (2.2-3.7cm) Aortic Valve AoV Peak Vitor.114.5cm/sAoV VTI21.9cm AO Peak GR.5.2mmHgLVOT Peak Vitor.105.5cm/s AO Mean GR.2mmHgAVA (VMAX)2.27cm2 ARIADNA (VTI)2.30cm2 Mitral Valve MV E Vwktjjra47.8cm/sMV DECEL DUSK237gz MV A Napmksfy45.4cm/sE/A Ratio0.7 MV A Ewtocmog510mk Pulmonary Valve PV Peak Migeykyt93.6cm/s LEFT VENTRICLE The left ventricle is normal size. There is mild concentric left ventricular hypertrophy. The left ve ntricular systolic function is normal. The Ejection Fraction is 55%. There is normal LV segmental wal l motion. Transmitral Doppler flow pattern is Grade I-abnormal relaxation pattern. RIGHT VENTRICLE The right ventricle is normal size. There is normal right ventricular wall thickness. The right ventr icular systolic function is normal. ATRIA The left atrium is borderline dilated. The right atrium size is normal. The interatrial septum is int act with no evidence for an atrial septal defect or patent foramen ovale as noted on 2-D or Doppler i maging. AORTIC VALVE The aortic valve is not well visualized. Doppler and Color Flow revealed no significant aortic regurg itation. There is no significant aortic valvular stenosis. MITRAL VALVE The mitral valve is normal in structure and function. There is no evidence of mitral valve prolapse. There is no mitral valve stenosis. Doppler and Color Flow revealed no mitral valve regurgitation note d. TRICUSPID VALVE The tricuspid valve is normal in structure and function. Doppler and Color Flow revealed no tricuspid valve regurgitation noted. There is no tricuspid valve prolapse or vegetation. There is no tricuspid valve stenosis. PULMONIC VALVE The pulmonic valve is not well visualized. GREAT VESSELS The aortic root is normal in size. The ascending aorta is normal in size. The IVC was not visualized. PERICARDIAL EFFUSION There is no evidence of significant pericardial effusion. Critical Notification Critical Value: No <Conclusion> The left ventricular systolic function is normal. The Ejection Fraction is 55%. There is normal LV segmental wall motion. Transmitral Doppler flow pattern is Grade I-abnormal relaxation pattern. No significant valvular abnormalities. There is no evidence of significant pericardial effusion. Signed by : Cameron Jaems, Electronically Approved : 01/28/2019 13:08:30
--- NOTE | 2019-01-28 14:03 | RAD ---
MR#: [id number] Date of Study: 01/28/2019 Ordering Physician: SALVADOR MONTILLA, Referring Physician: KELSY MORALES Tech: Carlos Ludwig RT (R) (N) APPROVED REPORT Test Type: Pharmacological Stress Nurse/Tech: Gaye Wylie R.N. Test Indications: dyspnea Cardiac History: Hypertension, smoker, COPD Medications: See Electronic Medical Record Medical History: See Electronic Medical Record Resting ECG: NSR Resting Heart Rate: 59 bpm Resting Blood Pressure: 182/92mmHg Pretest Chest Pain: No chest pain Nurse/Tech Notes S1S2, coarse breath sounds torri Consent: The procedure was explained to the patient in lay terms. Informed consent was witnessed. José eout was entered into [employer]. History and Stress Test performed by Gaye Wylie R.N. Pharm. Details Pharmacologic stress testing was performed using 0.4mg per 5ml of regadenoson given intravenously ove r 7-10 seconds. Stress Symptoms Nausea, vomitingDyspnea POST EXERCISE Reason for Termination: Infusion complete Target HR: 129 Max HR: 117 bpm Max Blood Pressure: 178/72mmHg Blood Pressure response to exercise: Normal blood pressure response during stress. Chest Pain: No. Arrhythmia: No. ST Change: No. INTERPRETATION Stress EKG Conclusion: Baseline EKG showed sinus rhythm. No ischemic changes at peak stress. No arr hythmias. Imaging Protocol IMAGE PROTOCOL: Rest Tc-99m/stress Tc-99m 1 day Rest: Stress: Viability: Radiopharm.Tc99m BacmytvlhMd40z Sestamibi Nffo07yOm 31.9mCi Duration 15min. 15min. Img Date 01/28/2019 01/28/2019 Inj-Img [id number]. 60min. Rest Admin Site:IV - Right AntecubitalAdministrator:RT Dalia (R)(N) Stress Admin Site: IV - Right AntecubitalAdministrator: RT Dalia (R)(N) STRESS DATA End Diast. Vol.62.0mlLVEDV index BSA30.0ml End Syst. Vol.11.0mlLVESV index BSA5.0ml Myocardial Xlrf418.0gEject. Emlortvb05.0% Stress Scores Regional WT0.00Summed WT0.00 Regional WM0.00Summed WM0.00 Study quality was good. Left Ventricular size was Normal at Rest and Stress. Lung uptake was . Left Ventricular ejection fraction is 82%. The rest and stress images show normal perfusion, normal contraction and thickening. LV Perf. Quant 17 Seg. SSS0.00 17 Seg. SRS3.00 17 Seg. SDS0.00 Stress Defect Extent (% LAD)0.00Rest Defect Extent (% LAD)0.00Rev. Defect Extent (% LAD)0.00 Stress Defect Extent (% LCX) 0.00Rest Defect Extent (% LCX)0.00Rev. Defect Extent (% LCX)0.00 Stress Defect Extent (% RCA)0.00Rest Defect Extent (% RCA)17.80Rev. Defect Extent (% RCA)0.00 Stress Defect Extent (% NEIL)0.00Rest Defect Extent (% NEIL)5.00Rev. Defect Extent (% NEIL)0.00 Conclusion 1. Regadenoson cardioisotope stress test did not show any evidence of ischemia or infarct. 2. Normal left ventricular systolic function with ejection fraction calculated at 82%. 3. Low risk for cardiac events. Signed by : Cameron James, Electronically Approved : 01/28/2019 14:03:26
== END | disposition home or self-care (01) ==
LOC: NM 10:15
PROVIDERS: ATTEND Internal Medicine Cardiovascular Disease
DX: I11.9 Hypertensive heart disease without heart failure (principal); J44.9 Chronic obstructive pulmonary disease, unspecified; F17.200 Nicotine dependence, unspecified, uncomplicated
CPT/HCPCS: 78452; 93017; 93306; 96374; A9500; J2785